=== PATIENT | male | born 1950 | race Caucasian/White ===

== ENCOUNTER → 2016-11-04 | Outpatient (CLI) | payer OTHER ==
[~2016-11-04] MED LIST: ASPI-983 PO
== END ==
LOC: PREOP 05:41
PROVIDERS: ATTEND Surgery
DX: Z01.818 Encounter for other preprocedural examination (principal); Z86.010 Personal history of colon polyps

== ENCOUNTER 2016-11-08 08:56 | Day surgery (SDC) | payer OTHER ==
[~2016-11-08] VITALS: Ht 167.6 cm; Wt 90.7 kg
[2016-11-08 09:05] VITALS: BP 128/76
[2016-11-08] MEDS ORDERED: NS IV 1000 ML 1,000 ML IV PRN (09:15)
[2016-11-08] MEDS ORDERED: NALOXONE 0.4 MG/ML 1 ML (NARCAN) VIAL IVP PRN (09:15)
[2016-11-08] MEDS ORDERED: FLUMAZENIL (ROMAZICON) 0.1 MG/ML 5 ML VIAL INJ PRN (09:15)
[2016-11-08] MEDS ORDERED: ASPI-983 PO (09:30)
--- NOTE | 2016-11-08 10:23 | Progress Note-Pre Operative ---
Pre-Operative Progress Note H&P Reviewed The H&P was reviewed, patient examined and no changes noted. Time Seen by Provider: 10:22 Date H&P Reviewed: Nov 08, 2016 Time H&P Reviewed: 10: Pre-Operative Diagnosis: history of polyps, diverticulosis ADOLFO RADFORD DO Nov 08, 2016 10:22 am
[2016-11-08] MEDS ORDERED: proPOfol 200 MG/20 ML (DIPRIVAN) VIAL IV ONE (10:56)
[2016-11-08] MEDS ORDERED: fentaNYL INJECTION 100 MCG/2 ML AMP ONE (10:56)
--- NOTE | 2016-11-08 11:34 | Discharge Inst-Simple/Standard ---
Discharge Inst-Standard Patient Instructions/Follow Up Plan of Care/Instructions/FU: Follow up with Dr. Rice as needed Repeat colonoscopy in 5 years or sooner if changes to current condition. Activity as Tolerated: Yes Discharge Diet: No Restrictions EFRAIN GARCIA APRN Nov 08, 2016 11:34
--- NOTE | 2016-11-08 11:37 | Progress Note-Post Operative ---
Post-Operative Progess Note Surgeon (s)/Culture Manager (s) Surgeon ADOLFO RADFORD DO Culture Manager: na Pre-Operative Diagnosis history of polyps, diverticulosis Post-Operative Diagnosis normal colon Procedure & Operative Findings Date of Procedure 11/08/16 Procedure Performed/Findings colonoscopy Anesthesia Type per information technology auditor Estimated Blood Loss Estimated blood loss (mL): none Specimens/Packing Specimens Removed none ADOLFO RADFORD DO Nov 08, 2016 11:37 am
[2016-11-08 11:50] VITALS: BP 114/72
[2016-11-08 12:10] VITALS: BP 127/69
[2016-11-08 12:15] VITALS: BP 127/69
--- NOTE | 2016-11-08 12:48 | OPERATIVE REPORT ---
DATE OF SERVICE: 11/08/2016 PREOPERATIVE DIAGNOSIS: History of colon polyps. POSTOPERATIVE DIAGNOSIS: Normal colon. PROCEDURE: Colonoscopy. SURGEON: Adolfo Rice DO ANESTHESIA: Per CULLET CRUSHER AND WASHER. ESTIMATED BLOOD LOSS: None. COMPLICATIONS: None. INDICATIONS: The patient is a 66-year-old male with a history of colon polyps. He was instructed to have followup colonoscopy. He understands risks and benefits of procedure and wished to proceed with procedure. Consent was signed in the chart. PROCEDURE: The patient was taken to the endoscopy suite, placed in left lateral recumbent position. Timeout was performed. Digital rectal exam was performed and there were no palpable polyps, mass or ulcerations. The scope was inserted in the rectum and advanced all the way to the cecum with minimal difficulty. Prep was adequate. Scope was slowly retracted back. There were no polyps, masses or ulcerations within the cecum. The ileocecal valve was intubated. The terminal ileum had normal appearance. The scope was then brought back into the colon and slowly retracted back. There are no polyps, masses or ulcerations within the cecum, ascending, transverse, descending, and sigmoid colon. In the sigmoid colon, there was Tammy inking noted. No other pathology noted. Scope was continued to be withdrawn back into the rectum where it was also retroflexed noting no other pathology. Scope was returned to its normal position slowly withdrawn until completely removed. The patient tolerated procedure well without any complications and taken to the recovery room in stable condition. RECOMMENDATIONS: The patient will need repeat colonoscopy in five years due to history of colon polyps. If he has any problems prior to that, he should be reevaluated at that time. Job ID: [id number] DocumentID: [id number] Dictated Date: 11/08/2016 11:40:16 Pluck Separator Date: 11/08/2016 12:21:30 Dictated By: ADOLFO RICE DO
== END 2016-11-08 12:18 | disposition home or self-care (01) ==
LOC: ENDO 08:56
PROVIDERS: ATTEND Surgery
DX: Z12.11 Encounter for screening for malignant neoplasm of colon (principal); Z86.010 Personal history of colon polyps

== ENCOUNTER 2021-10-27 07:37 | Outpatient (CLI) | payer OTHER ==
[~2021-10-27] VITALS: Ht 167.6 cm; Wt 88.5 kg
[~2021-10-27 07:37] MED LIST changes: +ASPI-1238 PO; -ASPI-983 PO
== END 2021-10-28 13:15 | disposition home or self-care (01) ==
LOC: PREOP 07:37
PROVIDERS: ATTEND Surgery
DX: Z01.818 Encounter for other preprocedural examination (principal)

== ENCOUNTER 2021-11-09 08:18 | Day surgery (SDC) | payer OTHER ==
[~2021-11-09] VITALS: Ht 167 cm; Wt 88.5 kg
[2021-11-09] MEDS ORDERED: LACTATED RINGERS 1,000 ML IV STA (08:26)
[2021-11-09 08:30] VITALS: BP 132/73
--- NOTE | 2021-11-09 10:13 | Progress Note-Pre Operative ---
Pre-Operative Progress Note H&P Reviewed The H&P was reviewed, patient examined and no changes noted. Date Seen by Provider: Nov 09, 2021 Time Seen by Provider: 10:13 Date H&P Reviewed: Nov 09, 2021 Time H&P Reviewed: 10:13 Pre-Operative Diagnosis: history of polyps ADOLFO RADFORD DO Nov 09, 2021 10:13
[2021-11-09] MEDS ORDERED: PROPOFOL INJECTION 50 ML IV ONE (10:26)
[2021-11-09 11:00] VITALS: BP 107/60
--- NOTE | 2021-11-09 11:04 | Progress Note-Post Operative ---
Post-Operative Progess Note Surgeon (s)/Airframe Technician (s) Surgeon ADOLFO RADFORD DO Airframe Technician: na Pre-Operative Diagnosis history of polyps Post-Operative Diagnosis descending polyps, diverticulosis Procedure & Operative Findings Date of Procedure 11/09/21 Procedure Performed/Findings colonoscopy c hot bx polypectomy x 2 Anesthesia Type per electrophonic engineer Estimated Blood Loss Estimated blood loss (mL): none Specimens/Packing Specimens Removed descending colon polyps x 2 ADOLFO RADFORD DO Nov 09, 2021 11:04
[2021-11-09 11:05] VITALS: BP 109/60
--- NOTE | 2021-11-09 11:05 | Discharge Inst-Simple/Standard ---
Discharge Inst-Standard Discharge Medications New, Converted or Re-Newed RX: RX on Chart Patient Instructions/Follow Up Plan of Care/Instructions/FU: 2 weeks Dwayne Activity as Tolerated: Yes Discharge Diet: Regular Diet (high fiber) ADOLFO RADFORD DO Nov 09, 2021 11:05
[2021-11-09 11:10] VITALS: BP 107/58
[2021-11-09 11:25] VITALS: BP 107/62
[2021-11-09 11:31] VITALS: BP 107/62
--- NOTE | 2021-11-09 11:35 | Anesthesia-General Post-Op ---
MAC Patient Condition Mental Status/LOC: Same as Preop Cardiovascular: Satisfactory Nausea/Vomiting: Absent Respiratory: Satisfactory Pain: Controlled Complications: Absent Post Op Complications Complications None Follow Up Care/Instructions Patient Instructions None needed. Anesthesiology Discharge Order Discharge Order Patient is doing well, no complaints, stable vital signs, no apparent adverse anesthesia problems. No complications reported per nursing. ANNETTE SERRATO CRNA Nov 09, 2021 11:35
--- NOTE | 2021-11-09 17:59 | OPERATIVE REPORT ---
DATE OF SERVICE: 11/09/2021 PREOPERATIVE DIAGNOSIS: History of colon polyps. POSTOPERATIVE DIAGNOSES: Descending colon polyp x2, diverticulosis. PROCEDURE: Colonoscopy with hot polypectomy x2. SURGEON: Adolfo Rice DO ANESTHESIA: Per FIRE INVESTIGATION MANAGER. ESTIMATED BLOOD LOSS: None. COMPLICATIONS: None. INDICATIONS: The patient is a 71-year-old male with history of polyps. She understands risks and benefits of procedure and wishes to proceed. Consent was signed in the chart. DESCRIPTION OF PROCEDURE: The patient was taken to endoscopy suite, placed in left lateral recumbent position. Timeout was performed. Digital rectal exam was performed. No palpable polyps, masses or ulcerations. Scope was inserted in the rectum and advanced all the way to cecum with minimal difficulty. Prep was adequate. Scope was slowly retracted back. No polyps, masses or ulcerations within the cecum, ascending and transverse colon. In the descending colon, there were two small polyps, which hot biopsy polypectomies were performed. Scope was then continuously retracted back. Sigmoid colon had some diverticulosis present. Also, noted an old tattoo present. No evidence of any polyps, masses or ulcerations. Scope was then continuously retracted back until in the rectum where it was also retroflexed noting no other pathology except for some hemorrhoids. Scope was returned to its normal position, slowly withdrawn until completely removed. The patient tolerated procedure well without any complications, taken to recovery room in stable condition. RECOMMENDATIONS: The patient will need repeat colonoscopy on an as needed basis. If has any return of symptoms may need repeat colonoscopy. The patient was recommended high fiber diet. The patient will follow up in office in two to three weeks to discuss pathology results. Job ID: [id number] DocumentID: [id number] Dictated Date: 11/09/2021 11:08:19 Fiberglass Boat Finisher Date: 11/09/2021 17:58:35 Dictated By: ADOLFO RICE DO [facility]
== END 2021-11-09 11:31 | disposition home or self-care (01) ==
LOC: ENDO 08:18
PROVIDERS: ATTEND Surgery
DX: Z12.11 Encounter for screening for malignant neoplasm of colon (principal); D12.4 Benign neoplasm of descending colon; K63.5 Polyp of colon; K57.30 Diverticulosis of large intestine without perforation or abscess without bleeding; K64.9 Unspecified hemorrhoids; E11.9 Type 2 diabetes mellitus without complications; Z87.891 Personal history of nicotine dependence; Z79.82 Long term (current) use of aspirin